=== PATIENT | male | born 1970 | race Caucasian/White ===

== ENCOUNTER 2018-01-26 11:46 | Emergency (ER) | payer OTHER ==
[~2018-01-26] VITALS: Ht 175.3 cm; Wt 95.3 kg
[2018-01-26 13:08] LABS: Urine Bacteria NONE SEEN /hpf (None Seen); Urine Blood 3+ /uL (Negative); Urine Specific Gravity 1.026 (1.001-1.035); Urine WBC 121 /hpf (0 - 3)
[2018-01-26 14:49] VITALS: BP 148/80
== END 2018-01-26 14:51 | disposition home or self-care (01) ==
LOC: ER 11:46
DX: R31.9 Hematuria, unspecified (principal)
CPT/HCPCS: 74176; 81001